=== PATIENT | male | born 1980 | race African-American/Black ===

== ENCOUNTER 2016-08-30 19:08 | Emergency (ER) | payer OTHER ==
[~2016-08-30 19:08] MED LIST: TAMIFLU6 MG/ML PO
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
[2016-08-30] MEDS ORDERED: CYCLOBENZAPRINE10 M1 PO (20:27)
[2016-08-30] MEDS ORDERED: IBUPROFEN600 M1 PO (20:27)
[2016-08-30] MEDS ORDERED: PERCOCET 5-3251 EACH PO (20:27)
[2016-08-30 20:37] VITALS: BP 130/76
== END 2016-08-30 20:39 ==
LOC: ERH 19:08
DX: S16.1XXA Strain of muscle, fascia and tendon at neck level, initial encounter (principal); M54.9 Dorsalgia, unspecified; V49.40XA Driver injured in collision with unspecified motor vehicles in traffic accident, initial encounter; Y92.410 Unspecified street and highway as the place of occurrence of the external cause
CPT/HCPCS: 72080

== ENCOUNTER 2016-09-08 22:15 | Emergency (ER) | payer OTHER ==
[~2016-09-08] VITALS: Ht 185.4 cm; Wt 75.8 kg
[~2016-09-08 22:15] MED LIST changes: +CYCLOBENZAPRINE10 M1 PO; +IBUPROFEN600 M1 PO; +PERCOCET 5-3251 EACH PO
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
[2016-09-08] MEDS ORDERED: MOBIC15 M1 PO (23:47)
[2016-09-08 23:56] VITALS: BP 130/85
== END 2016-09-08 23:56 ==
LOC: ERH 22:15
DX: S16.1XXA Strain of muscle, fascia and tendon at neck level, initial encounter (principal); S39.012A Strain of muscle, fascia and tendon of lower back, initial encounter; V49.60XA Unspecified car occupant injured in collision with unspecified motor vehicles in traffic accident, initial encounter; Y92.9 Unspecified place or not applicable

== ENCOUNTER 2016-09-16 17:56 | Emergency (ER) | payer OTHER ==
[~2016-09-16] VITALS: Ht 185.4 cm; Wt 75.3 kg
[~2016-09-16 17:56] MED LIST changes: +MOBIC15 M1 PO
[2016-09-16 18:05] VITALS: BP 146/92
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
== END 2016-09-16 18:29 ==
LOC: ERH 17:56
DX: S16.1XXA Strain of muscle, fascia and tendon at neck level, initial encounter (principal); V49.50XA Passenger injured in collision with unspecified motor vehicles in traffic accident, initial encounter; Y92.9 Unspecified place or not applicable
CPT/HCPCS: 99282